=== PATIENT | female | born 1950 | race Caucasian/White ===

== ENCOUNTER → 2018-03-20 08:55 | Outpatient (CLI) | payer MEDICARE, BC, SELFPAY ==
[2018-03-20 10:19] LABS: Absolute Lymphocyte Count 1.46 X10^3/ul (0.83-4.51); Absolute Neutrophil Count 2.9 X10^3/uL (2.0-7.7); Basophil# 0.06 X10^3/uL; Basophil% 1.1 % (0-1); Eosinophil# 0.21 X10^3/uL; Eosinophils% 3.9 % (0-5); Hematocrit 41.5 % (37-47); Hemoglobin 13.9 g/dl (12.0-15.0); Lymphocyte # 1.46 X10^3/ul (4.0); Lymphocyte % 27.2 % (19-41); Mean Corp Hgb Conc 33.5 g/gl (32-36); Mean Corpuscular Hgb 30.8 pg (27.0-32.0); Mean Corpuscular Volume 91.8 fL (81-99); Mean Platelet Vol. 10.7 fl (6.2-12.0); Monocyte# 0.69 X10^3/uL; Monocyte% 12.9 % (0-10); Neutrophil # 2.94 X10^3/uL (2.7-7.7); Neutrophil % 54.9 % (47-70); Platelet Count 343 K/mm3 (150-450); RBC Distribution Width CV 12.9 % (11.6-14.6); RBC Distribution Width SD 42.3 fl (35.1-43.9); Red Blood Count 4.52 M/mm3 (4.2-5.4); White Blood Count 5.4 K/mm3 (4.4-11.0)
[2018-03-20 10:21] LABS: POSITIVE COUNT NO; POSITIVE DIFFERENTIAL NO; POSITIVE MORPHOLOGY NO
[2018-03-20 10:48] LABS: ALB/GLOB Ratio 0.9 RATIO (0.9-2.4); AST(SGOT) 19 U/L (15-37); Alanine Aminotransfer ALT/SGPT 27 U/L (13-56); Albumin, Serum 3.6 g/dL (3.2-5.0); Alkaline Phosphatase 82 U/L (45-117); Anion Gap 12 (5-15); BUN 19 mg/dL (7-18); BUN/Creat Ratio 20.3 RATIO (10-20); Calcium,Total 8.4 mg/dL (8.5-10.1); Chloride 107 mmol/L (98-107); Creatinine, Serum 0.94 mg/dL (0.55-1.02); EST Glomerular Filtration Rate 64 mL/min (>60); Est Glom Filt Rate - Afr Amer 77 mL/min (>60); Globulin 3.8 g/dL (2.2-4.2); Glucose 108 mg/dL (74-106); Potassium 3.9 mmol/L (3.5-5.1); Protein, Total 7.4 g/dL (6.4-8.2); Sodium Level 140 mmol/L (136-145)
[2018-03-25 04:08] LABS: HEPATITIS B SURFACE AG Negative (Negative); Hepatitis A AB, Total Negative (Negative); Hepatitis A IgM Antibody Negative (Negative); Hepatitis B Core AB IgM Negative (Negative); Hepatitis B Core Ab Total Negative (Negative); Hepatitis C Ab <0.1 s/co ratio (0.0-0.9); QNTFERON TB Ag Minus Nil Value 0.02 IU/mL (.); QNTFERON TB Ag Value 0.06 IU/mL (.); QNTFERON TB Mitogen Value > 10.00 IU/mL (.); QNTFERON TB Nil Value 0.04 IU/mL (.)
[2018-03-25 11:06] LABS: Hep B Surface Antibodies Non Reactive (.); QNTIFERON TB Gold Negative (Negative)
== END ==
PROVIDERS: Family Provider Family Medicine; PCP Family Medicine; Visit Provider Dermatology
DX: L92.0 Granuloma annulare (principal)
CPT/HCPCS: 36415; 80053; 85025; 86480; 86704; 86705; 86706; 86708; 86709; 86803; 87340

== ENCOUNTER 2020-09-06 08:00 | Outpatient (RCR) | payer MEDICARE, SELFPAY | END 2020-09-06 23:59 | LOC: IMMUN 08:00 | PROVIDERS: PCP Family Medicine; Visit Provider Family Medicine | DX: Z23 Encounter for immunization (principal) | CPT/HCPCS: 0011A; 0012A ==

== ENCOUNTER 2021-09-19 09:11 | Outpatient (CLI) | payer MEDICARE, SELFPAY ==
[2021-09-20 17:43] LABS: SJOGREN'S Anti-SS-A test < 0.2 AI (0.0-0.9); SJOGREN'S Anti-SS-B test < 0.2 AI (0.0-0.9)
== END 2021-09-19 23:59 | disposition home or self-care (01) ==
PROVIDERS: PCP Family Medicine; Visit Provider Otolaryngology Otolaryngology/Facial Plastic Surgery
DX: M35.00 Sjogren syndrome, unspecified (principal)
CPT/HCPCS: 36415; 86038; 86235

== ENCOUNTER 2022-07-25 12:30 | Outpatient (RCR) | payer MEDICARE, SELFPAY ==
--- NOTE | 2022-06-08 12:00 | HP.PTEVAL_ITS ---
Patient's Visit Information RODNEY SY is a 72 year old F referred to Physical Therapy by KELSY ALFONSO with a diagnosis of Strain of muscle left hip, S76.012A; Strain of muscle right hip, S76.011A. Date of Evaluation: 06/08/22 Physical Therapist: Dexter Murrieta - Visit Plan Frequency: 2x /Week Duration: 6 Weeks Plan: Continue with bilateral hip strengthening especially hip abductor and extensor strengthening. Also add some core and back strengthening as well. Use manual therapy as needed. - Subjective Pt. is a 72 y.o. female who has been having bilateral hip pain since last September with no specific injury that she is aware of. Pt. PLOF includes no history of hip problems before this. She has had previous imaging of her hips which she states showed a defect of her hips. Pt. denies any back pain. She has dif ficulty with sitting longer than 30 minutes, standing/walking longer than 15 minutes, ascending/descending stairs, getting up from a chair, squatting, sleeping, housework, yard work, and work activity. 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 Her goal with physical therapy is to get rid of her pain and be able to sit and drive. Pt. has had previous physical therapy for her right knee. She rates bilateral hip pain at 5/10 currently, at worst 9/10, at best 3/10 and describes the pain as throbbing and sharp. Pt. will take Tylenol on occasion for pain. Her PMH includes right TKR and bilateral ankle surgery. Her hobbies include watching [employer] channel and reading. - Objective Posture- Good posture in standing. Palpation- Tenderness over bilateral greater trochanters and lateral hip. Lumbar AROM- WNL for all motions and no pain. Left hip flexion 5/5, abduction 4/5, adduction 5/5, extension 4/5, knee flexion 5/5, knee extension 5/5, ankle DF 5/5, ankle PF 5/5. Right hip flexion 5/5 abduction 4/5, adduction 5/5, extension 4/5, knee flexion 5/5, knee extension 5/5, ankle DF 5/5, ankle PF 5/5. Special tests- Hip scour [-], Hip quadrant [- ], LUIS's [-], Katt's [-]. Gait- Pt. ambulates with no gait deviations. - Balance/Special Test Scores Lower Extremity Functional Score: 10 - Goals Goal 1:: Pt. will be able to sit for at least 30 minutes with bilateral hip pain < 3/10. Goal Time Frame: 4-6 Weeks Goal 2:: Pt. will be able to stand/walk for at least 30 minutes with bilateral hip pain < 3/10. Goal Time Frame: 4-6 Weeks Goal 3:: Pt. will be able to sleep a full night with no hip pain. Goal Time Frame: 4-6 Weeks Goal 4:: Pt. will be able to get up from a chair with no pain or difficulty. Goal Time Frame: 4-6 Weeks Goal 5:: Pt. will rate bilateral hip pain at worst at 3/10 with ADL's. Goal Time Frame: 4-6 Weeks Goal 6:: Pt. will improve LEFS score < 60% disability in order to improve mobility and ADL's. Goal Time Frame: 4-6 Weeks - Rehabilitation Potential Physical Therapy Diagnosis: Decreased LE strength and pain Rehabilitation Potential: Good - Anticipated Interventions Patient/Client Instruction: Educate patient on: Condition, Plan of Care, Benefits of Fitness Program For the Purpose of:: To decrease pain, To improve ability to perform ADL's, To improve performance and independence with ADL's, To improve tolerance to ADL's Therapeutic Exercise to Include: Strength training, Body mechanics, Postural training, Flexibilty training, Active ROM Comment: Focus on hip strengthening especially hip abductor and extensor strengthening and also add core and back strengthening as well. For the Purpose of:: To decrease pain, To improve ability to perform ADL's, To improve performance and independence with ADL's, To improve tolerance to ADL's Manual Therapy Techniques to Include: Massage, Soft tissue mobilization For the Purpose of:: To decrease pain, To increase ROM, To increase flexibility/ROM Thank you for the opportunity to evaluate your patient. For Medicare and Medicare HMO plans, please review the plan of care and approve it. It will need to be FAXED BACK to us at [phone] for Medicare purposes. For Medicare only, by signing this I certify the plan of care. Please let me know if there are questions or concerns regarding this plan of care. Physician Signature: Date:
--- NOTE | 2022-07-25 12:57 | HP.PTREVAL ---
KELSY ALFONSO, It has been my pleasure to treat RODNEY SY over the last 6 visits for Strain of muscle left hip, S76.012A; Strain of muscle right hip, S76.011A. Please see the progress note below for an update on the physical therapy plan of care! 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 Hips are getting better. They don't feel as tight. pain in hips 4/10. Worse with driving and sitting too long. Feel better with moving. To doctor tomorrow. Doing exercises at home of bridges , bands etc. does them every other day. Not sleeping well and cannot lie on sides. Objective/Function: Walks with trendelenberg gait B slightly. I trasnfers even getting out of chair without UE. Tender in hips laterally minimally. LB AROM WFL and without increased pain. Tightness in quads and HS persists. Full PROM B hips except extension limited to 5 degrees B. Overall improved SLOWLY. Pt to doctor tomorrow for recheck and will address other options but wishes to continue to get toward I gym strength program. Plan Plan: 2x/week for 4 weeks for... 1. rollout hips and quads and stretch. 2. Progress hip strength to I gym program for [employer] membership. Call 0patient once approval received. Fair prognosis to progress to I with strength ex in gym.Current goals appropriate for 4 more weeks. Balance/Gait/Functional tests - Balance/Special Test Scores Lower Extremity Functional Score: 0 Goals Goal 1:: Pt. will be able to sit for at least 30 minutes with bilateral hip pain < 3/10. Goal Time Frame: 4-6 Weeks Goal Progress: Progressing Goal 2:: Pt. will be able to stand/walk for at least 30 minutes with bilateral hip pain < 3/10. Goal Time Frame: 4-6 Weeks Goal Progress: Not Progressing Goal 3:: Pt. will be able to sleep a full night with no hip pain. Goal Time Frame: 4-6 Weeks Goal Progress: Not Progressing Goal 4:: Pt. will be able to get up from a chair with no pain or difficulty. Goal Time Frame: 4-6 Weeks Goal Progress: Goal Met Goal 5:: Pt. will rate bilateral hip pain at worst at 3/10 with ADL's. Goal Time Frame: 4-6 Weeks Goal Progress: Not Progressing Goal 6:: Pt. will improve LEFS score < 60% disability in order to improve mobility and ADL's. Goal Time Frame: 4-6 Weeks Goal Progress: back hurts too today. Anticipated Interventions Patient/Client Instruction: Educate patient on: Condition, Plan of Care, Benefits of Fitness Program For the Purpose of:: To decrease pain, To improve ability to perform ADL's, To improve performance and independence with ADL's, To improve tolerance to ADL's Therapeutic Exercise to Include: Strength training, Body mechanics, Postural training, Flexibilty training, Active ROM Comment: Focus on hip strengthening especially hip abductor and extensor strengthening and also add core and back strengthening as well. For the Purpose of:: To decrease pain, To improve ability to perform ADL's, To improve performance and independence with ADL's, To improve tolerance to ADL's Manual Therapy Techniques to Include: Massage, Soft tissue mobilization For the Purpose of:: To decrease pain, To increase ROM, To increase flexibility/ROM Please do not hesitate to contact me at [phone] by phone or if you have questions or concerns regarding this new plan of care! Sincerely, Keenan Segura, DPT, OCS, CSCS
--- NOTE | 2022-11-16 11:38 | HP.PT.NRP ---
RODNEY SY was seen in my office for initial evaluation on 06/08/22. The following Plan of Care was established for this patient: Initial Frequency: 2x /Week Initial Duration: 6 Weeks Patient/Client Instruction: Educate patient on: Condition, Plan of Care, Benefits of Fitness Program For the Purpose of:: To decrease pain, To improve ability to perform ADL's, To improve performance and independence with ADL's, To improve tolerance to ADL's Therapeutic Exercise to Include: Strength training, Body mechanics, Postural training, Flexibilty training, Active ROM For the Purpose of:: To decrease pain, To improve ability to perform ADL's, To improve performance and independence with ADL's, To improve tolerance to ADL's Manual Therapy Techniques to Include: Massage, Soft tissue mobilization For the Purpose of:: To decrease pain, To increase ROM, To increase flexibility/ROM This patient was last seen in our office 07/25/22. Pertinent comments regarding their Physical therapy will appear below: Pt seen 6 visits of initial POC and was 40% better, the plan was to continue but patient did not schedule or attend any further visits. at this point, it has been over 2 months and I will discontinue due to nonattendance. At this point I will be discontinuing this patient from physical therapy. I would be happy to see this patient again in the future if found appropriate by the physician. Thank you! Keenan Segura, DPT, OCS, CSCS Balance/Gait/Functional tests - Balance/Special Test Scores Lower Extremity Functional Score: 0
== END 2022-07-25 19:00 | disposition home or self-care (01) ==
LOC: PT 12:30
PROVIDERS: PCP Family Medicine; Referring Provider Physician Assistant Medical; Visit Provider Physician Assistant Medical
DX: S76.012D Strain of muscle, fascia and tendon of left hip, subsequent encounter (principal); S76.011D Strain of muscle, fascia and tendon of right hip, subsequent encounter
CPT/HCPCS: 97110; 97140; 97161; 97164

== ENCOUNTER 2023-08-27 09:00 | Outpatient (RCR) | payer MEDICARE, SELFPAY ==
--- NOTE | 2023-08-21 13:58 | HP.PTEVAL_ITS ---
Patient's Visit Information Visit Information Visit Information: RODNEY SY is a 73 year old F referred to Physical Therapy by Dr. Arun Almanzar MD with a diagnosis of General LE weakness and knee pain. 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 Avoid irritation of knee as much as possible. Has consistent numbness in R ITB/L2 and 3 nerve field, incorporate sciatic nerve glides to see if changes pain since pt had a good stretch from back of thigh down in to foot during initial eval. Subjective Subjective: Pt presents to PT with sandra LE weakness. Pt currently does not have any pain after receiving cortisone injection in R knee and is able to walk much better. Pt reports some tingling and numbness in lateral R thigh that wakes her up at night. Physician wants to do PT to help with knee pain and weakness. Pt dr shirley shutt[place] the airport, has some stiffness in R knee and pain in adductors/hamstrings which worsens with sitting. Pt would like to improve LE strength, walking, stairs, sitting for 1+ hour. Pt has 5 stairs to enter house and has a split level with 13 stairs throughout the house. Was using a chair lift before injection. Icy[employer] to help with lateral thigh pain. Pain Bilateral Lower Extremity: Pain Intensity (Out of 10): 0 Pain Intensity Range: 0 and 8 Objective Objective: ROM: WNL, tightness in adductors and hamstrings, some limited R hip IR but no pain MMT: 3+/5 sandra hip ABD strength, 4+/5 quad, hamstring, and ankle strength PALPATION: Tenderness in sandra glute med, greater troch, ITB and distal adductors/HS (R in general worse than L) NEURO: patellar and achilles reflex intact GAIT: WNL, need to observe stairs in near future 5xSTS: 12.64 TU.86 Tandem Stance: <10s sandra, pt felt more unsteady with R leg back, large trunk sway sandra and with feet together Balance/Special Test Scores Lower Extremity Functional Score: 29 Goals Goal 1:: STG: Pt will demonstrate min to no tissue restrictions in sandra adductors and hamstrings Goal Time Frame: 2 Weeks Goal 2:: LTG: Pt will achieve >15s in tandem stance sandra to demonstrate improved balance and safety Goal Time Frame: 2-4 Weeks Goal 3:: LTG: Pt will be able to walk for 300+ft with no LOB and no pain Goal Time Frame: 2-4 Weeks Goal 4:: LTG: Pt will be able to sit for 1+ hours with <2/10 discomfort Goal Time Frame: 2-4 Weeks Rehabilitation Potential Physical Therapy Diagnosis: Pt presents to PT with LE tightness and hip weakness, most likely d/t chronic knee pain. Pt reports knee pain has subsided following a cortisone injection and physician would like her to work on LE strength to help reduce likelihood of knee pain recurring. Pt would benefit from PT services to address LE strength, walking stamina, and improve tissue extensibility. Rehabilitation Potential: Good Anticipated Interventions Patient/Client Instruction: Educate patient on: Condition and Plan of Care For the Purpose of:: To decrease pain, To improve muscle performance and motor function, To improve ability to perform ADL's, To increase tolerance to activity/condition/position, To improve performance and independence with ADL's, To decrease level of supervision to perform tasks, To improve gait and locomotor functions, To decrease soft tissue restriction, To increase flexibility/ROM, To improve endurance, To improve balance, To improve safety with gait, To assume or resume ADL's, To reduce risk of recurrence, To improve ability to perform tasks related to life management and To improve tolerance to ADL's Therapeutic Exercise to Include: Strength training, Balance training, Body mechanics, Postural training, Flexibilty training and Gait and locomotor training For the Purpose of:: To improve muscle performance and motor function, To improve ability to perform ADL's, To increase tolerance to activity/condition/position, To improve performance and independence with ADL's, To decrease level of supervision to perform tasks, To improve ability of physical actions for home/community/work/leisure, To improve gait and locomotor functions, To improve endurance, To improve balance, To improve safety with gait, To improve ability to perform tasks related to life management and To improve tolerance to ADL's Manual Therapy Techniques to Include: Passive ROM and Soft tissue mobilization For the Purpose of:: To improve nutrient delivery to tissue, To increase oxygenation perfusion, To improve muscle performance and motor function, To improve health of tissue, To decrease soft tissue restriction, To increase flexibility/ROM, To improve health and function, To improve self management and To prevent re-injury Cryotherapy (ice pack, ice massage): Yes Thermo therapy (hot pack): Yes Ultrasound (thermal/non thermal): Yes For the Purpose of:: To decrease pain, To decrease swelling/inflammation, To improve health of tissue, To decrease soft tissue restriction and To increase f lexibility/ROM Text: Thank you for the opportunity to evaluate your patient. For Medicare and Medicare HMO plans, please review the plan of care and approve it. It will need to be FAXED BACK to us at [phone] for Medicare purposes. For Medicare only, by signing this I certify the plan of care. Please let me know if there are questions or concerns regarding this plan of care. Physician Signature: Date:
--- NOTE | 2023-10-18 10:21 | HP.PT.NRP ---
Patient Information Patient Information: RODNEY SY was seen in my office for initial evaluation on 08/21/23. The following Plan of Care was established for this patient: POC Established Initial Frequency: 2x /Week Initial Duration: 4 Weeks Anticipated Interventions Patient/Client Instruction: Educate patient on: Condition and Plan of Care For the Purpose of:: To decrease pain, To improve muscle performance and motor function, To improve ability to perform ADL's, To increase tolerance to activity/condition/position, To improve performance and independence with ADL's, To decrease level of supervision to perform tasks, To improve gait and locomotor functions, To decrease soft tissue restriction, To increase flexibility/ROM, To improve endurance, To improve balance, To improve safety with gait, To assume or resume ADL's, To reduce risk of recurrence, To improve ability to perform tasks related to life management and To improve tolerance to ADL's Therapeutic Exercise to Include: Strength training, Balance training, Body mechanics, Postural training, Flexibilty training and Gait and locomotor training For the Purpose of:: To improve muscle performance and motor function, To improve ability to perform ADL's, To increase tolerance to activity/condition/position, To improve performance and independence with ADL's, To decrease level of supervision to perform tasks, To improve ability of physical actions for home/community/work/leisure, To improve gait and locomotor functions, To improve endurance, To improve balance, To improve safety with gait, To improve ability to perform tasks related to life management and To improve tolerance to ADL's Manual Therapy Techniques to Include: Passive ROM and Soft tissue mobilization For the Purpose of:: To improve nutrient delivery to tissue, To increase oxygenation perfusion, To improve muscle performance and motor function, To improve health of tissue, To decrease soft tissue restriction, To increase flexibility/ROM, To improve health and function, To improve self management and To prevent re-injury Cryotherapy (ice pack, ice massage): Yes Thermo therapy (hot pack): Yes Ultrasound (thermal/non thermal): Yes For the Purpose of:: To decrease pain, To decrease swelling/inflammation, To improve health of tissue, To decrease soft tissue restriction and To increase flexibility/ROM Last Seen Last Seen: This patient was last seen in our office 08/27/23. Pertinent comments regarding their Physical therapy will appear below: Pt. was seen in PT. She came to her initial visit and 1 follow up. She has not been seen in several weeks and will be DC from PT at this point in time. At this point I will be discontinuing this patient from physical therapy. I would be happy to see this patient again in the future if found appropriate by the physician. Thank you! Sunny Barnett, DPT Balance/Gait/Functional tests Balance/Special Test Scores Lower Extremity Functional Score: 29
== END 2023-08-27 19:00 | disposition home or self-care (01) ==
LOC: PT 09:00
PROVIDERS: PCP Family Medicine; Referring Provider Specialist; Visit Provider Specialist
DX: M70.51 Other bursitis of knee, right knee (principal); M21.162 Varus deformity, not elsewhere classified, left knee; Z96.651 Presence of right artificial knee joint
CPT/HCPCS: 97110; 97116; 97161